=== PATIENT | male | born 1965 | race Caucasian/White ===

== ENCOUNTER 2018-05-13 05:35 | Day surgery (SDC) | payer OTHER ==
--- NOTE | 2018-05-09 13:44 | EKG REPORT ---
SEVERITY:- NORMAL ECG - SINUS RHYTHM : Confirmed by: Jassi Savage MD 09-May-2018 13:43:40
[~2018-05-13 05:35] MED LIST: ACETAMINOPHEN 325 MG TABLET PO PRN; LACTATED RINGERS 1000 ML IV PRN; LIDOCAINE 0.5% INJ-PF (5 MG/ML) 50 ML SDV SUBCUT PRN; METRONIDAZOLE 500 MG/NS RTU 100 ML IV PRN
[2018-05-13] MEDS ORDERED: PROPOFOL INJ 200 MG/20 ML VIAL IV ONE (06:23)
[2018-05-13] MEDS ORDERED: LIDOCAINE 2% INJ-PF (20 MG/ML) 10 ML AMPUL ONE (06:23)
[2018-05-13] MEDS ORDERED: DEXAMETHASONE SOD PHOSPHATE INJ 4 MG/1 ML VIAL ONE (06:23)
[2018-05-13] MEDS ORDERED: FENTANYL CITRATE INJ/PF 100 MCG/2 ML AMPUL ONE (06:23)
[2018-05-13] MEDS ORDERED: ONDANSETRON HCL INJ/PF 4 MG/2 ML SDV ONE (06:23)
[2018-05-13] MEDS ORDERED: MIDAZOLAM 2 MG/2 ML INJ ONE (06:24)
[2018-05-13] MEDS ORDERED: ONDANSETRON HCL INJ/PF 4 MG/2 ML SDV IV PRN (07:08)
[2018-05-13] MEDS ORDERED: FENTANYL CITRATE INJ/PF 100 MCG/2 ML AMPUL IV PRN ×3 (07:08)
[2018-05-13] MEDS ORDERED: MORPHINE SULFATE 10 MG/ML INJ IV PRN (07:08)
[2018-05-13] MEDS ORDERED: DIPHENHYDRAMINE HCL 50 MG/ML VIAL IV PRN (07:08)
[2018-05-13] MEDS ORDERED: MEPERIDINE HCL/PF INJ 25 MG/1 ML DISP.SYRIN IV PRN (07:08)
[2018-05-13] MEDS ORDERED: PROMETHAZINE HCL INJ 25 MG/1 ML VIAL IV PRN ×2 (07:08)
[2018-05-13] MEDS ORDERED: BUPIVACAINE HCL 0.25% /EPINEPHRINE INJ/PF 30 ML SDV ONE (07:39)
[2018-05-13] MEDS ORDERED: BACITRACIN ZINC OINTMENT 15 GM ONE (08:24)
[2018-05-13] MEDS ORDERED: LIDOCAINE 2% JELLY 30 ML TUBE ONE (08:24)
--- NOTE | 2018-05-13 08:45 | Operative Report ---
Nonrecallable Operative Report DATE OF SURGERY: 05/13/18 PREOPERATIVE DIAGNOSIS: 1. Rectal bleeding. 2. Inflamed anal skin tag 2 POSTOPERATIVE DIAGNOSIS: 1. Rectal bleeding. 2. Inflamed anal skin tag 2. 3. Normal colonoscopy. OPERATION: 1 colonoscopy to the cecum. 2. Excision of anal skin tag 2 SURGEON: MADONNA PINO ANESTHESIA: LMAC TISSUE REMOVED OR ALTERED: Anal skin tag 2 COMPLICATIONS: None apparent ESTIMATED BLOOD LOSS: Minimal PROCEDURE: Drains/implants: None. Procedure in detail: After informed consent was obtained, the patient was brought to the operating room and laid in the left lateral decubitus position. The endoscope was passed up the rectum, sigmoid colon, descending colon, across the transverse colon, down the ascending colon, and into the cecum. The ileocecal valve and appendiceal orifice were identified. The scope was then withdrawn circumferentially noting the mucosa. The prep was very good. Scope was withdrawn past the ascending colon, transverse colon, down the descending colon, sigmoid colon, and into the rectum. In the rectum a retroflexion maneuver was performed. Small internal hemorrhoids were identified. There is no active bleeding. The scope was straightened, air was suctioned from the rectum, the scope was removed, and this portion of the procedure was concluded. Next attention was turned to excision of the inflamed anal skin tags. The patient had 2 separate anal skin tags in the left lateral position. Quarter percent Marcaine was used to anesthetize the area. The skin tags were excised with a 15 blade scalpel. The defects were closed using 3-0 chromic suture in simple running fashion. Once this was complete a dressing was fashioned, and the procedure was concluded. All sponge, instrument, and needle counts were correct 2. Condition: Stable.
--- NOTE | 2018-05-13 08:48 | Discharge Summary ---
Discharge Summary (SDC) - Discharge Final Diagnosis: rectal bleeding. anal skin tag. normal colonoscopy. Date of Surgery: 05/13/18 Discharge Date: 05/13/18 Condition: Stable Referrals: JADEN DIAS PA [Primary Care Provider] - Discharge Diet: As Tolerated Respiratory Treatments at Home: Deep Breathing/Coughing, Incentive Spirometer Discharge Activity: Slowly Increase Activity Home Care Assistance: None Needed Report the Following to Your Physician Immediately: Shortness of Breath, Nausea , Vomiting, Increase in Pain, Fever over 101 Degrees, Unusual Bleeding
[2018-05-13] MEDS ORDERED: HYDROCODONE/ACETAMINOPHEN 5-325 MG TABLET PO PRN (09:41)
[2018-05-13 14:46] VITALS: BP 113/78
== END 2018-05-13 12:00 | disposition home or self-care (01) ==
LOC: OROUT 05:35 → EDBD 10:45 → OROUT 12:00
PROVIDERS: ATTEND Surgery
DX: K62.5 Hemorrhage of anus and rectum (principal); K64.4 Residual hemorrhoidal skin tags; I10 Essential (primary) hypertension; N40.0 Benign prostatic hyperplasia without lower urinary tract symptoms; Z79.899 Other long term (current) drug therapy
CPT/HCPCS: 93005; 88304 ×2; 93010; J2250; J3490 ×3; J1100; J3010; J2405; J2704; 811